=== PATIENT | female | born 1960 | race Caucasian/White ===

== ENCOUNTER 2018-04-29 07:00 | Day surgery (SDC) | payer OTHER ==
[~2018-04-29] VITALS: Ht 160 cm; Wt 68.0 kg
[2018-04-29] MEDS ORDERED: MEPERIDINE HCL/PF 100 MG/ML AMP ONE (07:19)
[2018-04-29] MEDS ORDERED: SIMETHICONE 40 MG/0.6 ML ML ONE (07:20)
[2018-04-29] MEDS: MIDAZOLAM HCL 5 MG/5 ML VIAL ONE ×4 (09:45→09:54)
[2018-04-29 10:09] VITALS: BP_SYST 158
== END 2018-04-29 11:20 | disposition home or self-care (01) ==
LOC: SMU 07:00 → SDS 07:00
PROVIDERS: ATTEND Internal Medicine Gastroenterology
DX: K29.50 Unspecified chronic gastritis without bleeding (principal); K21.0 Gastro-esophageal reflux disease with esophagitis; Z86.010 Personal history of colon polyps; E78.5 Hyperlipidemia, unspecified; Z87.891 Personal history of nicotine dependence; Z88.2 Allergy status to sulfonamides; Z79.899 Other long term (current) drug therapy; Z88.8 Allergy status to other drugs, medicaments and biological substances; J45.909 Unspecified asthma, uncomplicated
CPT/HCPCS: 36415; 43239; 43248; 87081; 88305; 88312; 88313; J2175; J2250